=== PATIENT | male | born 1950 | race Caucasian/White ===

== ENCOUNTER → 2019-08-14 | Outpatient (CLI) | payer MEDICARE ==
[2019-08-14 11:58] LABS: ABSOLUTE BASOPHILS # (AUTO) 0.1 10^3/uL (0.0-0.2); ABSOLUTE EOSINOPHILS # (AUTO) 0.2 10^3/uL (0.0-0.6); ABSOLUTE LYMPHOCYTES (AUTO) 2.1 10^3/uL (0.5-4.7); ABSOLUTE MONOCYTES (AUTO) 0.8 10^3/uL (0.1-1.4); ABSOLUTE NEUT (AUTO) 6.6 10^3/uL (1.7-8.2); EOSINOPHILS % (AUTO) 1.5 % (0-6); HEMOGLOBIN 19.3 g/dL (13.5-17.0); LYMPHOCYTES % (AUTO) 21.8 % (13-45); MEAN CORPUSCULAR HEMOGLOBIN 36.3 pg (27.0-33.4); MEAN CORPUSCULAR HGB CONC 34.4 g/dL (32.0-36.0); MEAN CORPUSCULAR VOLUME 106 fl (80-97); MONOCYTES % (AUTO) 8.5 % (3-13); PLATELET COUNT 216 10^3/uL (150-450); RED BLOOD COUNT 5.32 10^6/uL (4.35-5.55); RED CELL DISTRIBUTION WIDTH 15.4 % (11.5-14.0); SEGMENTED NEUTROPHILS % (AUTO) 67.2 % (42-78); TOTAL CELLS COUNTED % (AUTO) 100 %; WHITE BLOOD COUNT 9.8 10^3/uL (4.0-10.5)
[2019-08-14 12:23] LABS: HEMATOCRIT 56.1 % (37.9-51.0)
[2019-08-14 12:30] LABS: ALBUMIN 4.5 g/dL (3.5-5.0); ALKALINE PHOSPHATASE 170 U/L (38-126); ANION GAP 9 (5-19); ASPARTATE AMINO TRANSFERASE 27 U/L (17-59); BILIRUBIN,DIRECT 0.4 mg/dL (0.0-0.4); BILIRUBIN,TOTAL 1.1 mg/dL (0.2-1.3); BLOOD UREA NITROGEN 10 mg/dL (7-20); CALCIUM 9.9 mg/dL (8.4-10.2); CARBON DIOXIDE 30 mmol/L (22-30); CHLORIDE 101 mmol/L (98-107); GLUCOSE 107 mg/dL (75-110); POTASSIUM 4.4 mmol/L (3.6-5.0); TOTAL PROTEIN 8.1 g/dL (6.3-8.2)
--- NOTE | 2019-08-14 12:36 | RADIOLOGY REPORT (SQ) ---
EXAM DESCRIPTION: HAND LEFT 3 VIEWS COMPLETED DATE/TIME: 08/14/2019 12:08 pm REASON FOR STUDY: UNSPECIFIED OPEN WOUND OF LEFT HAND, INITIAL ENCOUNTER S61.402A UNSPECIFIED OPEN WOUND OF LEFT HAND, INITIAL ENCOUN COMPARISON: None. EXAM PARAMETERS: NUMBER OF VIEWS: Three views. TECHNIQUE: AP, lateral and oblique radiographic images acquired of the left hand. LIMITATIONS: None. FINDINGS: MINERALIZATION: Normal. BONES: No acute fracture or dislocation. No worrisome bone lesions. JOINTS: No effusions. SOFT TISSUES: 2nd MCP joint soft tissue swelling. No foreign body. OTHER: No other significant finding. IMPRESSION: 2nd MCP joint region soft tissue swelling. No acute fracture or malalignment. No radio paque foreign body TECHNICAL DOCUMENTATION: JOB ID: [id number] [employer]- All Rights Reserved Reading location - IP/workstation name: [email or web address]
[2019-08-14 13:29] LABS: ERYTHROCYTE SEDIMENTATION RATE 3 mm/hr (0-20)
== END ==
LOC: WC 11:20
PROVIDERS: ATTEND Nurse Practitioner Family
DX: S61.402A Unspecified open wound of left hand, initial encounter (principal); X58.XXXA Exposure to other specified factors, initial encounter; Y93.9 Activity, unspecified; Y92.9 Unspecified place or not applicable
CPT/HCPCS: 36415; 80053; 85025; 85652; 86140

== ENCOUNTER → 2019-10-08 | Outpatient (CLI) | payer MEDICARE ==
[2019-10-08 14:00] LABS: ABSOLUTE BASOPHILS # (AUTO) 0.1 10^3/uL (0.0-0.2); ABSOLUTE EOSINOPHILS # (AUTO) 0.1 10^3/uL (0.0-0.6); ABSOLUTE LYMPHOCYTES (AUTO) 2.5 10^3/uL (0.5-4.7); ABSOLUTE MONOCYTES (AUTO) 0.7 10^3/uL (0.1-1.4); ABSOLUTE NEUT (AUTO) 4.4 10^3/uL (1.7-8.2); BASOPHILS % (AUTO) 1.4 % (0-2); EOSINOPHILS % (AUTO) 1.8 % (0-6); HEMOGLOBIN 19.7 g/dL (13.5-17.0); LYMPHOCYTES % (AUTO) 31.3 % (13-45); MEAN CORPUSCULAR HEMOGLOBIN 36.5 pg (27.0-33.4); MEAN CORPUSCULAR HGB CONC 35.3 g/dL (32.0-36.0); MEAN CORPUSCULAR VOLUME 103 fl (80-97); MONOCYTES % (AUTO) 9.4 % (3-13); PLATELET COUNT 210 10^3/uL (150-450); RED BLOOD COUNT 5.41 10^6/uL (4.35-5.55); RED CELL DISTRIBUTION WIDTH 14.6 % (11.5-14.0); SEGMENTED NEUTROPHILS % (AUTO) 56.1 % (42-78); TOTAL CELLS COUNTED % (AUTO) 100 %; WHITE BLOOD COUNT 7.9 10^3/uL (4.0-10.5)
--- NOTE | 2019-10-08 14:04 | RADIOLOGY REPORT (SQ) ---
EXAM DESCRIPTION: HAND LEFT 3 VIEWS COMPLETED DATE/TIME: 10/08/2019 1:33 pm REASON FOR STUDY: TOXIC EFFECT OF CONTACT W STINGRAY, ACCIDENTAL, SUBS T63.511D TOXIC EFFECT OF CON TACT W STINGRAY, ACCIDENTAL, SUB COMPARISON: 08/14/2019 EXAM PARAMETERS: NUMBER OF VIEWS: Three views. TECHNIQUE: AP, lateral and oblique radiographic images acquired of the left hand. LIMITATIONS: None. FINDINGS: MINERALIZATION: Normal. BONES: No acute bony abnormality. No dislocation. No significant degenerative change. JOINTS: No effusions. SOFT TISSUES: Soft tissue swelling along the dorsum of the hand with apparent gas fluid level seen on ly on the lateral projection. No radiopaque foreign body. OTHER: No other significant finding. IMPRESSION: Soft tissue swelling along the dorsum of the hand with apparent gas fluid level seen onl y on the lateral projection. Findings possible related to recent surgical intervention or gas-formin g infection. CT could be considered for confirmation. No radiopaque foreign body. No acute bony abnormality. Findings conveyed to STARR Edmondson at 1358 hours on 10/08/2019. TECHNICAL DOCUMENTATION: JOB ID: [id number] [employer]- All Rights Reserved Reading location - IP/workstation name: [email or web address]
[2019-10-08 14:05] LABS: HEMATOCRIT 55.9 % (37.9-51.0)
[2019-10-08 14:37] LABS: ALBUMIN 4.9 g/dL (3.5-5.0); ALKALINE PHOSPHATASE 136 U/L (38-126); ANION GAP 11 (5-19); ASPARTATE AMINO TRANSFERASE 29 U/L (17-59); BILIRUBIN,DIRECT 0.2 mg/dL (0.0-0.4); BILIRUBIN,TOTAL 0.9 mg/dL (0.2-1.3); BLOOD UREA NITROGEN 13 mg/dL (7-20); CALCIUM 10.4 mg/dL (8.4-10.2); CARBON DIOXIDE 30 mmol/L (22-30); CHLORIDE 97 mmol/L (98-107); GLUCOSE 92 mg/dL (75-110); POTASSIUM 4.6 mmol/L (3.6-5.0); TOTAL PROTEIN 8.4 g/dL (6.3-8.2)
[2019-10-08 14:40] LABS: ERYTHROCYTE SEDIMENTATION RATE 2 mm/hr (0-20)
[2019-10-08 14:46] LABS: C-REACTIVE PROTEIN < 5.0 mg/L (<10.0)
== END ==
LOC: OD 13:16
PROVIDERS: ATTEND Plastic Surgery
DX: T63.511D Toxic effect of contact with stingray, accidental (unintentional), subsequent encounter (principal)
CPT/HCPCS: 36415; 80053; 85025; 85652; 86140

== ENCOUNTER → 2020-02-17 | Outpatient (CLI) | payer MEDICARE | LOC: OD 12:04 | PROVIDERS: ATTEND Internal Medicine Hematology & Oncology | DX: Z53.9 Procedure and treatment not carried out, unspecified reason (principal) ==